=== PATIENT | female | born 1940 | race Caucasian/White ===

== ENCOUNTER 2017-12-29 17:54 | Inpatient (IN) | payer MEDICARE, OTHER ==
[~2017-12-29] VITALS: Ht 170.2 cm; Wt 57.4 kg
[2017-12-29 18:42] LABS: HEMATOCRIT 36.6 % (31.2-41.9); HEMOGLOBIN 12.4 g/dL (10.9-14.3); MEAN CORPUSCULAR HEMOGLOBIN 27.3 uug (24.7-32.8); MEAN CORPUSCULAR HGB CONC 34 g/dL (32.3-35.6); MEAN CORPUSCULAR VOLUME 80.8 fL (75.5-95.3); PLATELET COUNT (AUTO) 322 K/uL (179-408); RED BLOOD CELL COUNT(AUTO) 4.53 MIL/uL (3.63-4.92); WHITE BLOOD COUNT (AUTO) 7.3 K/uL (3.8-11.8)
--- NOTE | 2017-12-29 18:45 | NUR ---
SALINE LOCK PLACED, MRSDA OREDERD /SENT, LABS DRAWN, MONITOR SHOWS SINUS JODI AT 52BPM, GO1=878% ON ROOM AIR.
[2017-12-29 18:52] LABS: BASOPHILS % (AUTO) 0.8 % (0.0-2.0); EOSINOPHILS % (AUTO) 1.9 % (0.0-7.0); LYMPHOCYTES # (AUTO) 2.5 K/uL (20.0-40.0); LYMPHOCYTES % (AUTO) 36.2 % (20.5-51.5); MONOCYTES % (AUTO) 6.6 % (0.0-11.0); NEUTROPHILS # (AUTO) 3.8 K/uL (1.8-8.9); NEUTROPHILS % (AUTO) 54.5 % (38.5-71.5)
[2017-12-29 18:53] LABS: BASOPHILS # (AUTO) 0.1 K/uL (0.0-8.0); EOSINOPHILS # (AUTO) 0.1 K/uL (0.0-0.7); MONOCYTES # (AUTO) 0.5 K/uL (2.0-10.0)
[2017-12-29] MEDS ORDERED: CHOL200078 PO (18:55)
[2017-12-29] MEDS ORDERED: ASCO500T10 PO (18:55)
[2017-12-29] MEDS ORDERED: MEMA10TA PO (18:55)
[2017-12-29] MEDS ORDERED: CLOP75TA15 PO (18:55)
[2017-12-29] MEDS ORDERED: VALS160T2 PO (18:55)
[2017-12-29] MEDS ORDERED: EZET10TA13 PO (18:55)
[2017-12-29] MEDS ORDERED: CARV12.5 PO (18:55)
[2017-12-29] MEDS ORDERED: FAMO-132 PO (18:55)
[2017-12-29] MEDS ORDERED: HYDR-3326 PO (18:55)
[2017-12-29] MEDS ORDERED: ALEN70TA3 PO (18:55)
[2017-12-29] MEDS ORDERED: HYDR12.5 PO (18:55)
[2017-12-29] MEDS ORDERED: MULT1TAB73 PO (18:55)
[2017-12-29] MEDS ORDERED: ACET-2154 PO (18:55)
[2017-12-29] MEDS ORDERED: OMEG-176 PO (18:55)
--- NOTE | 2017-12-29 19:02 | NUR ---
SBAR REPORT TO PM SHIFT RN.
[2017-12-29 19:10] LABS: ALANINE AMINOTRANSFERASE 22 U/L (14-59); ALKALINE PHOSPHATASE 80 U/L (50-136); ASPARTATE AMINOTRANSFERASE 13 U/L (15-37); BILIRUBIN,DIRECT < 0.1 mg/dL (0.0-0.2); BILIRUBIN,TOTAL 0.3 mg/dL (0.2-1.0); CARBON DIOXIDE 29 mmol/L (21-32); CHLORIDE 100 mmol/L (98-107); CREATININE 0.9 mg/dL (0.6-1.3); POTASSIUM 3.6 mmol/L (3.5-5.1); TOTAL PROTEIN, SERUM 6.8 g/dL (6.4-8.2); UREA NITROGEN, BLOOD 30 mg/dL (7-18)
[2017-12-29] MEDS ORDERED: BLOO-140 IN (19:13)
[2017-12-29] MEDS ORDERED: REPA1TAB PO (19:13)
[2017-12-29] MEDS ORDERED: INSU100V7 SQ ×2 (19:13)
[2017-12-29] MEDS ORDERED: ATOR80TA PO (19:13)
[2017-12-29] MEDS ORDERED: MULT-213 PO (19:13)
[2017-12-29 19:17] LABS: GLUCOSE 331 mg/dL (74-106)
--- NOTE | 2017-12-29 19:18 | NUR ---
CALLED FROM LAB. BLOOD GLUCOSE 331. MD RAE NOTIFIED.
[2017-12-29 20:51] LABS: *BILIRUBIN,URIN NEGATIVE (NEGATIVE); *BLOOD, URINE 2+ (NEGATIVE); *CLARITY,URINE TURBID (CLEAR); *COLOR,URINE YELLOW (YELLOW); *KETONES,URINE NEGATIVE (NEGATIVE); *PROTEIN,URINE 2+ (NEGATIVE); *UROBILINOGEN,URINE 0.2 E.U./dl (NORMAL); NITRITE, URINE NEGATIVE (NEGATIVE)
--- NOTE | 2017-12-29 21:15 | NUR ---
REPORT GIVEN TO BEV POTTS
[2017-12-29] MEDS ORDERED: hydrALAZINE HCL 20 MG/1 ML VIAL IV STA (21:19)
[2017-12-29 21:26] LABS: LEUKOCYTE ESTERASE ,URINE 1+ (NEGATIVE); UGLUCOSE 2+ (NEGATIVE)
[2017-12-29] MEDS ORDERED: hydrALAZINE HCL 20 MG/1 ML VIAL ONE ×2 (21:26→22:08)
[2017-12-29] MEDS ORDERED: INSULIN REGULAR, HUMAN 300 UNIT/3 ML VIAL ONE (21:26)
[2017-12-29 21:28] LABS: BACTERIA,URINE MANY /HPF (NONE SEEN); SQUAMOUS EPITHELIAL CELL,UR FEW /HPF (NONE SEEN); WBC,URINE TNTC /HPF (0-3); YEAST,URINE MODERATE /HPF (NONE SEEN)
[2017-12-29] MEDS ORDERED: INSULIN REGULAR, HUMAN 300 UNIT/3 ML VIAL SQ ONE (21:30)
--- NOTE | 2017-12-29 21:36 | NUR ---
INSULIN DOSE VERIFIED BY MAN VILLAFANA
[2017-12-29] MEDS: hydrALAZINE HCL 20 MG/1 ML VIAL IV PRN ×2 (22:05→22:07)
--- NOTE | 2017-12-29 22:25 | NUR ---
ADMITTED A 77Y/O FEMALE WITH DIAGNOSIS OF WEAKNESS. PT ALERT TO SELF ONLY. MAINLY CONFUSED AND DISORIENTED. 2 DAUGHTER PRESENT DURING ADMISSION. ROUTINE ADMISSION CARE DONE. CARE PLAN INITIATED, SAFETY MEASURE INITIATED AND CALL TAYLOR WITHIN REACH.
--- NOTE | 2017-12-29 22:30 | NUR ---
Pt. admitted to [facility]LE[facility], under care of Dr. YEBOAH Belongs List completed
[2017-12-29 22:56] VITALS: BP 129/51
[2017-12-29] MEDS ORDERED: HYDROCODONE/APAP 5-325MG TABLET PO PRN (23:30)
[2017-12-29] MEDS ORDERED: ALENDRONATE SODIUM 70 MG TABLET PO SCH (23:30)
[2017-12-29] MEDS ORDERED: ACETAMINOPHEN 325 MG TABLET PO PRN (23:30)
[2017-12-29] MEDS ORDERED: DEXTROSE 50% 50 ML DISP.SYRIN IV PRN (23:45)
[2017-12-30] MEDS: BLOOD SUGAR DIAGNOSTIC 1 EACH STRIP VI SCH ×5 (00:04→20:40)
[2017-12-30] MEDS: HYDROCHLOROTHIAZIDE 12.5 MG CAPSULE PO SCH ×2 (00:06→11:30)
[2017-12-30] MEDS: INSULIN REGULAR, HUMAN 300 UNITS/3 ML VIAL SQ PRN ×2 (00:06→20:46)
[2017-12-30 00:08] VITALS: BP 117/44
[2017-12-30] MEDS ORDERED: CEFTRIAXONE 1 G VIAL ONE (00:26)
[2017-12-30] MEDS: CEFTRIAXONE 1 G in IV DEXTROSE 5% 50 ML IV SCH (00:44)
[2017-12-30 04:00] VITALS: BP 148/64
--- NOTE | 2017-12-30 06:08 | NUR ---
AAO TO SELF ONLY. CONFUSED AND DISORIENTED. NO S/SX OF PAIN OR SOB. O2 SAT AT 96% ON RA. IN NO ACUTE DISTRESS. SR ON TELE AT 78/MIN. IV SITE ON LEFT AC INTACT AND PATENT. SAFETY MEASURE MAINTAINED AND CALL TAYLOR WITHIN REACH.
--- NOTE | 2017-12-30 07:15 | NUR ---
RECEIVED REPORT FROM FOOD SERVICE KITCHEN SUPERVISOR NURSE, PATIENT IN BED AWAKE, NO DISTRESS NOTED AT THIS TIME, BED IN LOW POSITION, SIDE RAILS UP X2. BED ALARM ON.
[2017-12-30] MEDS: REPAGLINIDE 1 MG TABLET PO SCH ×4 (08:00→17:00)
[2017-12-30] MEDS ORDERED: CARVEDILOL 12.5 MG TABLET PO SCH (09:00)
[2017-12-30] MEDS: FAMOTIDINE 20 MG TABLET PO SCH ×2 (09:00→09:30)
[2017-12-30] MEDS: CLOPIDOGREL 75 MG TABLET PO SCH ×2 (09:00→09:31)
[2017-12-30] MEDS: VALSARTAN 160 MG TABLET PO SCH ×3 (09:00→17:00)
[2017-12-30] MEDS: CHOLECALCIFEROL 1,000 UNIT TABLET PO SCH ×2 (09:00→09:30)
[2017-12-30] MEDS: OMEGA-3 FATTY ACIDS/FISH OIL CAPSULE PO SCH ×3 (09:00→20:34)
[2017-12-30] MEDS: MEMANTINE HCL 10 MG TABLET PO SCH ×3 (09:00→17:00)
[2017-12-30] MEDS: MULTIVITAMINS,THERAPEUTIC TABLET PO SCH ×2 (09:00→09:30)
[2017-12-30] MEDS: ASCORBIC ACID 500 MG TABLET PO SCH ×3 (09:00→17:00)
[2017-12-30 09:26] LABS: BASOPHILS # (AUTO) 0.1 K/uL (0.0-8.0); BASOPHILS % (AUTO) 0.7 % (0.0-2.0); EOSINOPHILS # (AUTO) 0.1 K/uL (0.0-0.7); EOSINOPHILS % (AUTO) 1.6 % (0.0-7.0); HEMATOCRIT 37.4 % (31.2-41.9); HEMOGLOBIN 12.2 g/dL (10.9-14.3); LYMPHOCYTES # (AUTO) 3.1 K/uL (20.0-40.0); LYMPHOCYTES % (AUTO) 38.5 % (20.5-51.5); MEAN CORPUSCULAR HEMOGLOBIN 26.2 uug (24.7-32.8); MEAN CORPUSCULAR HGB CONC 33 g/dL (32.3-35.6); MEAN CORPUSCULAR VOLUME 80.3 fL (75.5-95.3); MONOCYTES # (AUTO) 0.6 K/uL (2.0-10.0); MONOCYTES % (AUTO) 7.6 % (0.0-11.0); NEUTROPHILS # (AUTO) 4.1 K/uL (1.8-8.9); NEUTROPHILS % (AUTO) 51.6 % (38.5-71.5); PLATELET COUNT (AUTO) 307 K/uL (179-408); RED BLOOD CELL COUNT(AUTO) 4.66 MIL/uL (3.63-4.92)
[2017-12-30 09:32] LABS: IRON, SERUM 42 ug/dL (50-175)
[2017-12-30] MEDS: INSULIN GLARGINE,HUM 300 UNITS/3 ML CARTRIDGE SQ SCH ×2 (09:34→20:46)
[2017-12-30] MEDS: INSULIN REGULAR, HUMAN 300 UNIT/3 ML VIAL SQ PRN ×3 (09:34→16:26)
[2017-12-30] MEDS: CARVEDILOL 12.5 MG TABLET PO SCH ×3 (09:35→17:01)
[2017-12-30 09:41] LABS: ALANINE AMINOTRANSFERASE 18 U/L (14-59); ALKALINE PHOSPHATASE 75 U/L (50-136); ASPARTATE AMINOTRANSFERASE 12 U/L (15-37); BILIRUBIN,TOTAL 0.2 mg/dL (0.2-1.0); CARBON DIOXIDE 26 mmol/L (21-32); CHLORIDE 99 mmol/L (98-107); CHOLESTEROL 141 mg/dL (<200); CREATININE 0.8 mg/dL (0.6-1.3); GLUCOSE 242 mg/dL (74-106); HDL CHOLESTEROL 33 mg/dL (40-60); MAGNESIUM 1.7 mg/dL (1.8-2.4); PHOSPHOROUS 3.1 mg/dL (2.5-4.9); POTASSIUM 3.6 mmol/L (3.5-5.1); TOTAL PROTEIN, SERUM 6.7 g/dL (6.4-8.2); TRIGLYCERIDES 186 MG/DL (30-150); UREA NITROGEN, BLOOD 24 mg/dL (7-18)
[2017-12-30 09:47] LABS: THYROID STIMULATING HORMONE 3.045 mIU/mL (0.358-3.740)
[2017-12-30] MEDS ORDERED: CLONIDINE HCL 0.1 MG TABLET PO PRN (11:00)
[2017-12-30] MEDS ORDERED: MAGNESIUM SULFATE/D5W 100 ML IV SCH (11:00)
[2017-12-30 11:34] VITALS: BP 119/48
[2017-12-30 12:07] VITALS: BP 164/64
[2017-12-30] MEDS: ENALAPRILAT DIHYDRATE INJ 1.25 MG in IV NORMAL SALINE 50 ML IV PRN (12:47)
--- NOTE | 2017-12-30 14:45 | NUR ---
Patient has been combative when care being delivered. Patient refused to take oral meds, discussed with Ami AUTOMOTIVE INTERNET SALES MANAGER and IV antihypertensive ordered. Patient took oral meds with family when crushed and in food. Currently patient in bed, no distress noted, bed in low position, side rails up x2.
--- NOTE | 2017-12-30 15:00 | NUR ---
REPORT RECEIVED BY NICOLASA PABLO. REPORTS THAT PT IS NOT COMPLIANT W/ MEDICATION AND IS AOX2, PT CAN BE HYPERVERBAL AND NOT ALLOW CARE. PT HAS NO SIGNS OF HYPO OR HYPER GLYCEMIA AT THIS TIME. CONTINUE TO MONITOR PT.
[2017-12-30 15:12] VITALS: BP 123/47
--- NOTE | 2017-12-30 17:30 | NUR ---
PT REFUSED MEDICATIONS. FAMILY CALLED AND INFORMED. DAUGHTER AT BEDSIDE ENCOURAGED PT TO TAKE MEDICATIONS. PT TO TAKE MEDS WITH CRANBERRY JUICE. PT COMPLIED AND TOOK MEDICATION.
--- NOTE | 2017-12-30 18:27 | NUR ---
PT SHOWS NO SIGNS OF RESPIRATORY DISTRESS AT THIS TIME, NO S/S OF HYPO OR HYPER GLYCEMIA. PT CALM, COOPERATIVE WITH DAUGHTER AT BED SIDE. PT IV SIGHT INTACT, BED AT LOWEST LOCKED POSITION AND WEARING NON SKID SOCKS. BS IS HIGH COVERED WITH INSULIN.CONTINUE TO MONITOR PT.
--- NOTE | 2017-12-30 19:45 | NUR ---
PATIENT AWAKE NO SOB NO CHEST PAIN, NO COMPLAIN OF PAIN AT THIS TIME, PATIENT NON COOPERATIVE WITH MEDICATIONS, REFUSED MEDS, NEEDS LOTS OF ENCOURAGEMENT, KEPT CLEAN AND DRY, KEPT COMFORTABLE.
[2017-12-30 20:00] VITALS: BP 111/55
[2017-12-30] MEDS: ATORVASTATIN 40 MG TABLET PO SCH (20:31)
[2017-12-30] MEDS: EZETIMIBE 10 MG TABLET PO SCH (20:31)
[2017-12-30] MEDS: ENOXAPARIN SODIUM 30 MG/0.3 ML DISP.SYRIN SUBCUT SCH (20:54)
[2017-12-31] VITALS: BP 152/61
[2017-12-31] MEDS: CEFTRIAXONE 1 G in IV DEXTROSE 5% 50 ML IV SCH ×2 (00:08→23:11)
[2017-12-31] MEDS: HYDROCHLOROTHIAZIDE 12.5 MG CAPSULE PO SCH ×3 (00:15→23:10)
[2017-12-31 04:00] VITALS: BP 136/64
[2017-12-31] MEDS: PANTOPRAZOLE SODIUM 40 MG TABLET.DR PO SCH (06:06)
[2017-12-31] MEDS: BLOOD SUGAR DIAGNOSTIC 1 EACH STRIP VI SCH ×4 (06:29→20:26)
--- NOTE | 2017-12-31 07:15 | NUR ---
RECEIVED REPORT FROM CAR CONSTRUCTION SUPERINTENDENT NURSE, PATIENT IN BED ASLEEP, NO DISTRESS NOTED AT THIS TIME, BED IN LOW POSITION SIDE RAILS UP X2, BED ALARM SET. CALL LIGHT WITHIN PATIENT REACH.
[2017-12-31 07:16] LABS: BASOPHILS % (AUTO) 0.5 % (0.0-2.0); EOSINOPHILS # (AUTO) 0.1 K/uL (0.0-0.7); EOSINOPHILS % (AUTO) 1.2 % (0.0-7.0); HEMATOCRIT 39.1 % (31.2-41.9); HEMOGLOBIN 12.8 g/dL (10.9-14.3); LYMPHOCYTES # (AUTO) 3.3 K/uL (20.0-40.0); MEAN CORPUSCULAR HEMOGLOBIN 26.6 uug (24.7-32.8); MEAN CORPUSCULAR HGB CONC 33 g/dL (32.3-35.6); MEAN CORPUSCULAR VOLUME 80.9 fL (75.5-95.3); MONOCYTES # (AUTO) 0.7 K/uL (2.0-10.0); NEUTROPHILS # (AUTO) 4.9 K/uL (1.8-8.9); NEUTROPHILS % (AUTO) 54.3 % (38.5-71.5); PLATELET COUNT (AUTO) 318 K/uL (179-408); RED BLOOD CELL COUNT(AUTO) 4.83 MIL/uL (3.63-4.92)
[2017-12-31 07:36] LABS: ALANINE AMINOTRANSFERASE 23 U/L (14-59); ALKALINE PHOSPHATASE 79 U/L (50-136); ASPARTATE AMINOTRANSFERASE 22 U/L (15-37); BILIRUBIN,TOTAL 0.3 mg/dL (0.2-1.0); CARBON DIOXIDE 29 mmol/L (21-32); CHLORIDE 102 mmol/L (98-107); CREATININE 0.9 mg/dL (0.6-1.3); GLUCOSE 96 mg/dL (74-106); MAGNESIUM 2.1 mg/dL (1.8-2.4); PHOSPHOROUS 4.4 mg/dL (2.5-4.9); POTASSIUM 4.4 mmol/L (3.5-5.1); TOTAL PROTEIN, SERUM 6.9 g/dL (6.4-8.2); UREA NITROGEN, BLOOD 29 mg/dL (7-18)
[2017-12-31] MEDS: OMEGA-3 FATTY ACIDS/FISH OIL CAPSULE PO SCH ×2 (08:31→20:26)
[2017-12-31] MEDS: ASCORBIC ACID 500 MG TABLET PO SCH ×2 (08:31→18:07)
[2017-12-31] MEDS: MULTIVITAMINS,THERAPEUTIC TABLET PO SCH (08:32)
[2017-12-31] MEDS: CHOLECALCIFEROL 1,000 UNIT TABLET PO SCH (08:32)
[2017-12-31] MEDS: REPAGLINIDE 1 MG TABLET PO SCH ×3 (08:32→18:07)
[2017-12-31] MEDS: INSULIN GLARGINE,HUM 300 UNITS/3 ML CARTRIDGE SQ SCH ×2 (08:33→20:29)
[2017-12-31] MEDS: MEMANTINE HCL 10 MG TABLET PO SCH ×2 (08:34→18:07)
[2017-12-31] MEDS: VALSARTAN 160 MG TABLET PO SCH ×2 (08:34→18:07)
[2017-12-31] MEDS: CARVEDILOL 12.5 MG TABLET PO SCH ×2 (08:35→18:07)
[2017-12-31 11:40] VITALS: BP 146/56
[2017-12-31] MEDS: INSULIN REGULAR, HUMAN 300 UNIT/3 ML VIAL SQ PRN ×3 (12:42→20:27)
[2017-12-31 15:35] VITALS: BP 136/58
--- NOTE | 2017-12-31 18:54 | NUR ---
Patient has been cooperative with care, less confusion throughout day, and allowed nursing staff to take care of her in later afternoon. Currently patient in bed awake, no distress noted, bed in low position, side rails up x2. bed alarm on.
[2017-12-31 20:00] VITALS: BP 133/51
[2017-12-31] MEDS: EZETIMIBE 10 MG TABLET PO SCH (20:26)
[2017-12-31] MEDS: ATORVASTATIN 40 MG TABLET PO SCH (20:26)
[2017-12-31] MEDS: ENOXAPARIN SODIUM 30 MG/0.3 ML DISP.SYRIN SUBCUT SCH (20:28)
[2018-01-01 04:00] VITALS: BP 124/60
[2018-01-01] MEDS: PANTOPRAZOLE SODIUM 40 MG TABLET.DR PO SCH (06:03)
[2018-01-01] MEDS: BLOOD SUGAR DIAGNOSTIC 1 EACH STRIP VI SCH ×3 (06:34→15:41)
--- NOTE | 2018-01-01 07:20 | NUR ---
RECEIVED REPORT FROM BEAD WRAPPER NURSE, PATIENT IN BED AWAKE, NO DISTRESS NOTED, BED IN LOW POSITION, SIDE RAILS UP X2, BED ALARM ON. PATIENT REPORTS NO PAIN.
[2018-01-01] MEDS: CARVEDILOL 12.5 MG TABLET PO SCH ×3 (08:00→08:59)
[2018-01-01] MEDS: REPAGLINIDE 1 MG TABLET PO SCH ×3 (08:00→12:00)
[2018-01-01] MEDS: ASCORBIC ACID 500 MG TABLET PO SCH ×3 (08:26→17:09)
[2018-01-01] MEDS: CHOLECALCIFEROL 1,000 UNIT TABLET PO SCH (08:26)
[2018-01-01] MEDS: MULTIVITAMINS,THERAPEUTIC TABLET PO SCH (08:26)
[2018-01-01] MEDS: OMEGA-3 FATTY ACIDS/FISH OIL CAPSULE PO SCH ×2 (08:26→09:00)
[2018-01-01] MEDS: VALSARTAN 160 MG TABLET PO SCH ×4 (08:26→17:10)
[2018-01-01] MEDS: MEMANTINE HCL 10 MG TABLET PO SCH ×3 (08:35→17:10)
--- NOTE | 2018-01-01 09:20 | NUR ---
PATIENT HOLDING MEDICATIONS IN MOUTH, AND SPITTING UP SLOWLY, REFUSING TO SWALLOW MEDICATIONS. BP STILL HIGH WILL GIVE VASOTEC.
[2018-01-01] MEDS: INSULIN GLARGINE,HUM 300 UNITS/3 ML CARTRIDGE SQ SCH (10:22)
[2018-01-01] MEDS: ENALAPRILAT DIHYDRATE INJ 1.25 MG in IV NORMAL SALINE 50 ML IV PRN (10:40)
[2018-01-01] MEDS: HYDROCHLOROTHIAZIDE 12.5 MG CAPSULE PO SCH (11:30)
[2018-01-01 12:02] LABS: BASOPHILS # (AUTO) 0.1 K/uL (0.0-8.0); BASOPHILS % (AUTO) 0.5 % (0.0-2.0); EOSINOPHILS % (AUTO) 0.2 % (0.0-7.0); HEMOGLOBIN 12.8 g/dL (10.9-14.3); LYMPHOCYTES # (AUTO) 1.5 K/uL (20.0-40.0); LYMPHOCYTES % (AUTO) 12.7 % (20.5-51.5); MEAN CORPUSCULAR HEMOGLOBIN 26.6 uug (24.7-32.8); MEAN CORPUSCULAR HGB CONC 33 g/dL (32.3-35.6); MONOCYTES # (AUTO) 0.7 K/uL (2.0-10.0); MONOCYTES % (AUTO) 6.1 % (0.0-11.0); NEUTROPHILS # (AUTO) 9.7 K/uL (1.8-8.9); NEUTROPHILS % (AUTO) 80.5 % (38.5-71.5); PLATELET COUNT (AUTO) 296 K/uL (179-408); RED BLOOD CELL COUNT(AUTO) 4.82 MIL/uL (3.63-4.92)
[2018-01-01 12:10] LABS: ALANINE AMINOTRANSFERASE 18 U/L (14-59); ALKALINE PHOSPHATASE 74 U/L (50-136); ASPARTATE AMINOTRANSFERASE 12 U/L (15-37); BILIRUBIN,TOTAL 0.2 mg/dL (0.2-1.0); CARBON DIOXIDE 25 mmol/L (21-32); CHLORIDE 100 mmol/L (98-107); CREATININE 1.1 mg/dL (0.6-1.3); MAGNESIUM 1.9 mg/dL (1.8-2.4); PHOSPHOROUS 3.8 mg/dL (2.5-4.9); POTASSIUM 4.1 mmol/L (3.5-5.1); TOTAL PROTEIN, SERUM 6.6 g/dL (6.4-8.2); UREA NITROGEN, BLOOD 29 mg/dL (7-18)
[2018-01-01 12:20] LABS: GLUCOSE 353 mg/dL (74-106)
[2018-01-01] MEDS: INSULIN REGULAR, HUMAN 300 UNIT/3 ML VIAL SQ PRN (13:12)
[2018-01-01 13:41] VITALS: BP 134/68
[2018-01-01] MEDS ORDERED: PANT40TA2 PO (13:47)
[2018-01-01] MEDS ORDERED: CLON0.1T14 PO (13:47)
[2018-01-01] MEDS ORDERED: CEPH500C2 PO (13:47)
[2018-01-01] MEDS ORDERED: FLUC100T8 PO ×2 (13:47→13:53)
[2018-01-01] MEDS ORDERED: Insulin Glargine,Hum SQ (13:47)
[2018-01-01] MEDS ORDERED: Blood Sugar Diagnostic VI (13:47)
[2018-01-01] MEDS ORDERED: INSU100V28 SQ ×2 (13:47)
[2018-01-01] MEDS ORDERED: LACT1CAP59 PO (13:51)
[2018-01-01] MEDS ORDERED: CEPHALEXIN MONOHYDRATE 500 MG CAPSULE PO SCH (14:00)
[2018-01-01] MEDS ORDERED: FLUCONAZOLE 200 MG/NS 100ML IV 100 MG in PREMIXED 1 EACH IV SCH (15:00)
[2018-01-01 15:58] VITALS: BP 111/57
[2018-01-01 17:10] VITALS: BP 111/57
--- NOTE | 2018-01-01 17:56 | NUR ---
REPORT CALLED TO [facility] [place], IV REMOVED AND FAMILY NOTIFIED BY KYLE FERRIS. PATIENT IN NO DISTRESS AT TIME OF DISCHARGE.
[2018-01-02] MEDS ORDERED: ALENDRONATE SODIUM 70 MG TABLET PO SCH (06:00)
[2018-01-02] MEDS ORDERED: INSULIN GLARGINE,HUM 300 UNITS/3 ML CARTRIDGE SQ SCH (09:00)
== END 2018-01-01 18:15 | DRG 757 ==
LOC: ER 17:56 → TELE 20:54 → MED 12-31 17:32
PROVIDERS: ADMIT Internal Medicine; ATTEND Internal Medicine
DX: B37.49 Other urogenital candidiasis (principal); G92 Toxic encephalopathy; E44.0 Moderate protein-calorie malnutrition; D68.59 Other primary thrombophilia; E11.65 Type 2 diabetes mellitus with hyperglycemia; E83.42 Hypomagnesemia; Z68.1 Body mass index [BMI] 19.9 or less, adult; N39.0 Urinary tract infection, site not specified; I25.10 Atherosclerotic heart disease of native coronary artery without angina pectoris; R26.2 Difficulty in walking, not elsewhere classified; B96.20 Unspecified Escherichia coli [E. coli] as the cause of diseases classified elsewhere; Z16.11 Resistance to penicillins; Z86.73 Personal history of transient ischemic attack (TIA), and cerebral infarction without residual deficits; Z90.710 Acquired absence of both cervix and uterus; Z92.21 Personal history of antineoplastic chemotherapy; Z85.43 Personal history of malignant neoplasm of ovary; E78.1 Pure hyperglyceridemia; Z79.4 Long term (current) use of insulin; F41.9 Anxiety disorder, unspecified; F03.90 Unspecified dementia, unspecified severity, without behavioral disturbance, psychotic disturbance, mood disturbance, and anxiety; Z79.02 Long term (current) use of antithrombotics/antiplatelets; Z79.899 Other long term (current) drug therapy; M81.0 Age-related osteoporosis without current pathological fracture; Z87.11 Personal history of peptic ulcer disease; Z79.83 Long term (current) use of bisphosphonates; Z98.49 Cataract extraction status, unspecified eye; E78.5 Hyperlipidemia, unspecified; Z74.09 Other reduced mobility; I11.9 Hypertensive heart disease without heart failure
CPT/HCPCS: 36415; 70030-TC; 70450; 71045; 83550; 83605; 83735; 84100; 84443; 85025; 85730; 87040; 87077; 87086; 92526; 93005; 93307; 97110; 97530; A4663; J0360; J0696; J1450; J1650; J1815; J3475; J3490; J7050; J7060

== ENCOUNTER 2018-05-12 21:15 | Inpatient (IN) | payer MEDICARE, OTHER ==
[~2018-05-12] VITALS: Ht 165.1 cm; Wt 59.0 kg
[~2018-05-12 21:15] MED LIST: ACET-2154 PO; ALEN70TA3 PO; ASCO500T10 PO; ATOR80TA PO; Blood Sugar Diagnostic VI; CARV12.5 PO; CEPH500C2 PO; CHOL200078 PO; CLON0.1T14 PO; CLOP75TA15 PO; EZET10TA13 PO; FAMO-132 PO; FLUC100T8 PO; HYDR-3326 PO; HYDR12.5 PO; INSU100V28 SQ; INSU100V7 SQ; Insulin Glargine,Hum SQ; LACT1CAP59 PO; MEMA10TA PO; MULT-213 PO; OMEG-176 PO; REPA1TAB PO; VALS160T2 PO
--- NOTE | 2018-05-13 00:28 | NUR ---
Dr. Deleon at bedside for MSE.
[2018-05-13] MEDS ORDERED: PIPERACILLIN SODIUM/TAZOBACTAM 3.375 G in IV DEXTROSE 5% 50 ML IV ONE (00:45)
[2018-05-13 00:49] LABS: BASOPHILS % (AUTO) 0.7 % (0.0-2.0); EOSINOPHILS # (AUTO) 0.1 K/uL (0.0-0.7); HEMATOCRIT 32.2 % (31.2-41.9); HEMOGLOBIN 10.6 g/dL (10.9-14.3); LYMPHOCYTES # (AUTO) 3.3 K/uL (20.0-40.0); LYMPHOCYTES % (AUTO) 47.3 % (20.5-51.5); MEAN CORPUSCULAR HEMOGLOBIN 26.4 uug (24.7-32.8); MEAN CORPUSCULAR HGB CONC 33 g/dL (32.3-35.6); MEAN CORPUSCULAR VOLUME 80.1 fL (75.5-95.3); MONOCYTES # (AUTO) 0.7 K/uL (2.0-10.0); MONOCYTES % (AUTO) 10.5 % (0.0-11.0); NEUTROPHILS # (AUTO) 2.7 K/uL (1.8-8.9); NEUTROPHILS % (AUTO) 39.5 % (38.5-71.5); PLATELET COUNT (AUTO) 445 K/uL (179-408); RED BLOOD CELL COUNT(AUTO) 4.03 MIL/uL (3.63-4.92); WHITE BLOOD COUNT (AUTO) 6.9 K/uL (3.8-11.8)
[2018-05-13] MEDS ORDERED: PIPERACILLIN/TAZOBACTAM/D5W 50 ML IV ONE (00:51)
[2018-05-13 01:01] LABS: CARBON DIOXIDE 28 mmol/L (21-32); CHLORIDE 99 mmol/L (98-107); CREATININE 0.9 mg/dL (0.6-1.3); GLUCOSE 146 mg/dL (74-106); POTASSIUM 3.9 mmol/L (3.5-5.1); UREA NITROGEN, BLOOD 32 mg/dL (7-18)
[2018-05-13] MEDS ORDERED: INSU100C4 SQ (01:06)
[2018-05-13] MEDS ORDERED: CLON0.1T PO (01:06)
[2018-05-13] MEDS ORDERED: FLUC100T PO (01:06)
[2018-05-13] MEDS ORDERED: BLOO-140 IN (01:06)
[2018-05-13] MEDS ORDERED: LOSA50TA3 PO (01:06)
[2018-05-13] MEDS ORDERED: INSU100V7 SQ ×2 (01:06)
[2018-05-13 01:07] LABS: ALANINE AMINOTRANSFERASE 43 U/L (14-59); ALKALINE PHOSPHATASE 112 U/L (50-136); ASPARTATE AMINOTRANSFERASE 28 U/L (15-37); BILIRUBIN,DIRECT 0.1 mg/dL (0.0-0.2); BILIRUBIN,TOTAL 0.2 mg/dL (0.2-1.0); TOTAL PROTEIN, SERUM 6.9 g/dL (6.4-8.2)
--- NOTE | 2018-05-13 01:38 | NUR ---
Dr. Deleon on panel call with [facility] Dr[facility] Humphrey.
[2018-05-13] MEDS ORDERED: HYDROCODONE/APAP 5-325MG TABLET PO PRN (03:00)
[2018-05-13] MEDS ORDERED: ACETAMINOPHEN 325 MG TABLET PO PRN (03:00)
[2018-05-13] MEDS ORDERED: MAGNESIUM HYDROXIDE 30 ML LIQUID UDC PO PRN (03:00)
[2018-05-13] MEDS ORDERED: ONDANSETRON 4 MG/2 ML VIAL IV PRN (03:00)
[2018-05-13] MEDS ORDERED: CLONIDINE HCL 0.1 MG TABLET PO PRN (03:00)
[2018-05-13] MEDS ORDERED: Z GUARD REMEDY PASTE 57 GM TUBE TOP PRN (03:00)
[2018-05-13] MEDS ORDERED: DEXTROSE 50% 50 ML DISP.SYRIN IV PRN (03:00)
[2018-05-13] MEDS ORDERED: LOSARTAN POTASSIUM 50 MG TABLET PO SCH (03:30)
--- NOTE | 2018-05-13 03:30 | NUR ---
Report given to Ramone Lawcarolyn.
[2018-05-13 03:48] VITALS: BP 165/75
--- NOTE | 2018-05-13 03:48 | NUR ---
PT ARRIVED IN MEDSURG UNIT ALERT TO TOUCH AND LIGHT PAIN, AWAKE, BUT NONVERBAL. UNABLE TO MAKE NEEDS KNOWN WITH FLAT AFFECT. PT NEEDS MAXIMUM ASSISTANCE WITH CARE AND ADLS. BP NOTED 165/75 TO LEFT ARM AND 189/84 TO RIGHT ARM. PT WAS OFFERED ROUTINE MICROZIDE AND COZAAR, AND ALSO PRN CATAPRES BUT REFUSED TO OPEN HER MOUTH FOR UNKNOWN REASONS INCLUDING PUDDING. BONIFACIO WILLIAMSON DNP IS AWARE AND STATED HE WILL FOLLOW UP. NO NEW ORDERS AT THIS TIME. NO S/S OF HYPER/HYPOGLYCEMIA. WILL CONTINUE TO MONITOR. PT REPOSITIONED WITH HOB 30 DEGREES AND BED ALARM ON.
[2018-05-13] MEDS ORDERED: LOSARTAN POTASSIUM 50 MG TABLET PO ONE (04:15)
--- NOTE | 2018-05-13 05:52 | NUR ---
PT REMAINS ASYMPTOMATIC SINCE BP READING. NO PAIN, HEADACHES, OR SOB SINCE ARRIVING TO [facility]. ISOLATION CART IN PLACE FOR ESBL OF URINE. NO NEW ORDERS AT THIS TIME. WILL CONTINUE TO MONITOR.
[2018-05-13] MEDS: PANTOPRAZOLE SODIUM 40 MG TABLET.DR PO SCH (06:27)
[2018-05-13] MEDS: BLOOD SUGAR DIAGNOSTIC 1 EACH STRIP VI SCH ×4 (06:31→21:51)
[2018-05-13 07:33] VITALS: BP 185/71
--- NOTE | 2018-05-13 07:46 | NUR ---
patient resting comfortably in bed at this time. elevated bp - will notify receptionist scheduler MD. refusing BP meds per production supervisor off shift nurse. blood sugar 81 in the morning. will monitor BS closely throughout shift. no signs of distress at this time. bed alarm is on, call light within reach of patient. bed in locked/low position. side rails up x2.
[2018-05-13] MEDS: CHOLECALCIFEROL 1,000 UNIT TABLET PO SCH (08:14)
[2018-05-13] MEDS: MEMANTINE HCL 10 MG TABLET PO SCH ×2 (08:14→18:02)
[2018-05-13] MEDS: OMEGA-3 FATTY ACIDS/FISH OIL CAPSULE PO SCH ×2 (08:14→21:26)
[2018-05-13] MEDS: MULTIVIT, IRON, MIN NO. 8, FA TABLET PO SCH (08:14)
[2018-05-13] MEDS: CLOPIDOGREL 75 MG TABLET PO SCH (08:15)
[2018-05-13] MEDS: ASCORBIC ACID 500 MG TABLET PO SCH ×2 (08:15→18:02)
[2018-05-13] MEDS: LOSARTAN POTASSIUM 50 MG TABLET PO SCH ×2 (08:15→21:26)
[2018-05-13] MEDS: HYDROCHLOROTHIAZIDE 12.5 MG CAPSULE PO SCH ×2 (08:15→21:27)
[2018-05-13] MEDS: CARVEDILOL 12.5 MG TABLET PO SCH ×2 (08:16→17:53)
[2018-05-13] MEDS: REPAGLINIDE 1 MG TABLET PO SCH ×3 (08:18→18:02)
[2018-05-13] MEDS: INSULIN GLARGINE,HUM 300 UNITS/3 ML CARTRIDGE SQ SCH ×2 (09:00→21:55)
[2018-05-13] MEDS ORDERED: Medication Not On Formulary EA (Multivitamins W-Minerals (Daily Multivitamin-Minerals) 1 PO SCH (09:00)
[2018-05-13] MEDS ORDERED: IV D5W-0.45% NS 1000 ML BAG IV ONE (10:15)
[2018-05-13 11:09] VITALS: BP 98/46
[2018-05-13] MEDS: IV D5 1/2 NS 1000 ML 1,000 ML IV PRN (12:10)
[2018-05-13] MEDS: INSULIN REGULAR, HUMAN 300 UNIT/3 ML VIAL SQ PRN ×2 (12:32→21:56)
[2018-05-13 15:10] VITALS: BP 109/50
[2018-05-13] MEDS: MEROPENEM 1 G in IV NORMAL SALINE 100 ML IV SCH ×2 (15:45→21:27)
--- NOTE | 2018-05-13 19:25 | NUR ---
RECEIVED PT ASLEEP ON BED COMFORTABLY. PT SHOWS NO SIGNS OF DISTRESS. IV INTACT AND PATENT. BLOOD SUGAR LEVEL MANAGED. CALL LIGHT WITHIN REACH. BED ALARM ON AND IN LOW POSITION, SIDE RAILS UPX2.WILL CONTINUE TO MONITOR.
--- NOTE | 2018-05-13 19:37 | NUR ---
IVF RUNNING, ABX ADMINISTERED. PATIENT CONTINUES TO BE CONFUSED, NON-VERBAL. SLIGHTLY DIFFICULT TO AROUSE WHEN ASLEEP. VITAL SIGNS HAVE BEEN STABLE. BLOOD PRESSURE WNL. BLOOD SUGAR MANAGEMENT PROVIDED. BED REST. BED ALARM ON. SAFETY MEASURES IMPLEMENTED. AFEBRILE. CONTACT ISOLATION FOR ESBL URINE. NO SIGNS OF DISTRESS. BED IN LOCKED/LOW POSITION, CALL LIGHT WITHIN REACH, SIDE RAILS UP X2.
[2018-05-13 20:00] VITALS: BP 113/53
[2018-05-13] MEDS ORDERED: Medication Not On Formulary EA (Atorvastatin Calcium (Lipitor) 80 MG) PO SCH (21:00)
[2018-05-13] MEDS: EZETIMIBE 10 MG TABLET PO SCH (21:27)
[2018-05-13] MEDS: ATORVASTATIN 40 MG TABLET PO SCH (21:31)
[2018-05-14] MEDS: IV D5 1/2 NS 1000 ML 1,000 ML IV PRN ×2 (02:11→18:23)
[2018-05-14 04:44] VITALS: BP 141/57
[2018-05-14] MEDS: MEROPENEM 1 G in IV NORMAL SALINE 100 ML IV SCH ×3 (05:05→21:59)
[2018-05-14] MEDS ORDERED: PIPERACILLIN/TAZOBACTAM/D5W 50 ML IV SCH (06:00)
--- NOTE | 2018-05-14 06:08 | NUR ---
PT SLEPT THROUGHOUT THE SHIFT. PT SHOWS NO SIGNS OF DISTRESS. PT IV INTACT AND PATENT. PRESCRIBED MEDICATION GIVEN AND PT TOLERATED IT WELL. PT DOESN'T WANT FIRST TO TAKE THE MEDICATION . IT WILL TAKE A WHILE FOR HER TO TAKE THE MEDICATION.SAFETY AND COMFORT PROVIDED. ALL NEEDS ARE MET. WILL ENDORSE ACCORDINGLY TO INCOMING DAYSHIFT NURSE.
[2018-05-14] MEDS: PANTOPRAZOLE SODIUM 40 MG TABLET.DR PO SCH (06:21)
[2018-05-14] MEDS: BLOOD SUGAR DIAGNOSTIC 1 EACH STRIP VI SCH ×4 (06:34→20:06)
[2018-05-14 06:48] LABS: BASOPHILS % (AUTO) 0.6 % (0.0-2.0); EOSINOPHILS # (AUTO) 0.1 K/uL (0.0-0.7); EOSINOPHILS % (AUTO) 2.1 % (0.0-7.0); HEMATOCRIT 31.6 % (31.2-41.9); HEMOGLOBIN 10.4 g/dL (10.9-14.3); LYMPHOCYTES # (AUTO) 2.4 K/uL (20.0-40.0); LYMPHOCYTES % (AUTO) 38.4 % (20.5-51.5); MEAN CORPUSCULAR HEMOGLOBIN 26.2 uug (24.7-32.8); MEAN CORPUSCULAR HGB CONC 33 g/dL (32.3-35.6); MEAN CORPUSCULAR VOLUME 79.3 fL (75.5-95.3); MONOCYTES # (AUTO) 0.5 K/uL (2.0-10.0); MONOCYTES % (AUTO) 8.6 % (0.0-11.0); NEUTROPHILS # (AUTO) 3.1 K/uL (1.8-8.9); NEUTROPHILS % (AUTO) 50.3 % (38.5-71.5); PLATELET COUNT (AUTO) 428 K/uL (179-408); RED BLOOD CELL COUNT(AUTO) 3.98 MIL/uL (3.63-4.92); WHITE BLOOD COUNT (AUTO) 6.2 K/uL (3.8-11.8)
[2018-05-14 06:54] LABS: CARBON DIOXIDE 28 mmol/L (21-32); CHLORIDE 103 mmol/L (98-107); CHOLESTEROL 200 mg/dL (<200); GLUCOSE 184 mg/dL (74-106); HDL CHOLESTEROL 35 mg/dL (40-60); MAGNESIUM 1.9 mg/dL (1.8-2.4); PHOSPHOROUS 2.7 mg/dL (2.5-4.9); POTASSIUM 3.7 mmol/L (3.5-5.1); TRIGLYCERIDES 193 MG/DL (30-150); UREA NITROGEN, BLOOD 22 mg/dL (7-18)
[2018-05-14 07:01] LABS: THYROID STIMULATING HORMONE 3.258 mIU/mL (0.358-3.740)
--- NOTE | 2018-05-14 07:49 | NUR ---
Received pt sleeping, no immediate s/sx of sob, pain, distress, or discomfort.
[2018-05-14] MEDS: REPAGLINIDE 1 MG TABLET PO SCH ×3 (08:00→17:46)
[2018-05-14] MEDS: CARVEDILOL 12.5 MG TABLET PO SCH ×3 (08:00→17:46)
[2018-05-14] MEDS: INSULIN REGULAR, HUMAN 300 UNIT/3 ML VIAL SQ PRN ×4 (08:31→20:08)
[2018-05-14] MEDS: INSULIN GLARGINE,HUM 300 UNITS/3 ML CARTRIDGE SQ SCH ×2 (08:35→20:07)
[2018-05-14] MEDS: LOSARTAN POTASSIUM 50 MG TABLET PO SCH ×2 (08:57→20:09)
[2018-05-14] MEDS: MULTIVIT, IRON, MIN NO. 8, FA TABLET PO SCH (08:58)
[2018-05-14] MEDS: MEMANTINE HCL 10 MG TABLET PO SCH ×2 (08:58→17:46)
[2018-05-14] MEDS: OMEGA-3 FATTY ACIDS/FISH OIL CAPSULE PO SCH ×2 (08:58→20:09)
[2018-05-14] MEDS: HYDROCHLOROTHIAZIDE 12.5 MG CAPSULE PO SCH ×3 (08:58→20:10)
[2018-05-14] MEDS: CLOPIDOGREL 75 MG TABLET PO SCH ×2 (08:58→12:19)
[2018-05-14] MEDS: CHOLECALCIFEROL 1,000 UNIT TABLET PO SCH (09:00)
[2018-05-14] MEDS: ASCORBIC ACID 500 MG TABLET PO SCH ×2 (09:00→17:46)
--- NOTE | 2018-05-14 09:02 | NUR ---
Offered and explained morning medication to the pt. Meds were crushed and offered with food. Pt refused by turning her head away and spitting out the medications and started to scream. Offered three times, pt kept refusing. Meds were discarded in the trash. Insulin and Lantus given.
--- NOTE | 2018-05-14 10:30 | NUR ---
Seen and evaluated by Dr. Nieves Addendum: 05/14/18 at 1239 by DICKSON NEFF RN aware pt refused her breakfast and morning medications. asked to inform daughter to bring outside food and encourage pt to eat
[2018-05-14 11:12] VITALS: BP 167/60
--- NOTE | 2018-05-14 11:42 | NUR ---
Seen and evaluated by wound nurse. Aida assessed the pt.'s left heel redness and stated it was a DTI and noted a new sacral wound: orders to apply Mepilex on the left heel and offload and orders to apply a small amount of hydrogel on sacral wound stage 2 and cover with Mepilex. Sacral wound is considered hospital acquired per Aida
--- NOTE | 2018-05-14 11:59 | NUR ---
WOUND CARE CONSULT: PT PRESENTS WITH LEFT HEEL DEEP TISSUE INJURY (INTACT) PRESENT ON ADMISSION. PT ALSO NOTED TO HAVE SACRAL STAGE 2 ULCER. RECOMMENDATIONS MADE FOR SKIN PROTECTION AND WOUND CARE. DISCUSSED WITH NURSING STAFF. FIRST STEP MATTRESS (LOW AIRLOSS OVERLAY) ON ORDER. ALL SKIN PROTECTION MEASURES IN PLACE. WILL SEE PRN. IN AGREEMENT WITH PLAN OF CARE. CURRENT AMANDA SCORE IS 11.
--- NOTE | 2018-05-14 12:33 | NUR ---
Daughter by bedside, offered to assist in giving the pt her much need morning medications: Prandin, hydrochlorothiazide, clopidogrel, carvedilol, and losartan potassium. Pt took meds finely crushed in cranberry juice offered and given by the daughter with supervision Addendum: 05/14/18 at 1240 by DICKSON NEFF RN pt i s noted to eat her lunch. Pt is being feed by her daughter and is complaint Addendum: 05/14/18 at 1409 by DICKSON NEFF RN *COMPLIANT
--- NOTE | 2018-05-14 14:07 | NUR ---
REORDERED FIRST STEP SPECIALTY MATTRESS
[2018-05-14 15:34] VITALS: BP 109/40
--- NOTE | 2018-05-14 17:30 | NUR ---
Sacral picture taken. Meds given crushed with cranberry juice. Pt eat about half a tuna sandwich
--- NOTE | 2018-05-14 18:24 | NUR ---
MD aware pt is on D5-1/2 NS, possible reason pt Accu checks are high
[2018-05-14 19:15] VITALS: BP 115/50
--- NOTE | 2018-05-14 20:00 | NUR ---
RECEIVED PATIENT AWAKE IN BED. ALERT TO SELF ONLY. CONFUSED. NO S/S OF PAIN OR DISCOMFORT. NO FACIAL GRIMACE NOTED. NO RESP. DISTRESS NOTED. VS WNL. HEPLOCK INTACT AND PATENT, NOTED TO RIGHT WRIST #20 GAUGE WITH IVF INFUSING WELL. ON RA. ON CONTACT ISOLATION FOR ESBL IN THE URINE. BILATERAL HEELS OFF-LOADED FOR PRESSURE RELIEF. BED ALARM ON. CALL LIGHT IN REACH. ALL NEEDS ATTENDED. WILL CONTINUE TO MONITOR AND ASSESS.
[2018-05-14] MEDS: EZETIMIBE 10 MG TABLET PO SCH (20:09)
[2018-05-14] MEDS: ATORVASTATIN 40 MG TABLET PO SCH (20:09)
--- NOTE | 2018-05-14 22:00 | NUR ---
PATIENT REPOSITIONED TO SIDE FOR PRESSURE RELIEF. BILATERAL HEELS OFF-LOADED. BED ALARM ON. ALL NEEDS ATTENDED. WILL CONTINUE TO MONITOR AND ASSESS.
[2018-05-15 03:40] VITALS: BP 141/58
[2018-05-15] MEDS: MEROPENEM 1 G in IV NORMAL SALINE 100 ML IV SCH ×3 (05:28→21:47)
[2018-05-15] MEDS: ALENDRONATE SODIUM 70 MG TABLET PO SCH ×2 (05:36→05:45)
--- NOTE | 2018-05-15 06:17 | NUR ---
PATIENT AWAKE IN BED. AIR MATTRESS IN PLACE. DRESSING NOTED TO SACRUM, CHANGED. C/D/I. SLEPT WELL. IVF INFUSING WELL TO RIGHT WRIST. VS WNL. REPOSITIONED TO SIDE AND BILATERAL HEELS OFF-LOADED FOR PRESSURE RELIEF. BED ALARM ON. CALL LIGHT IN REACH. ALL NEEDS ATTENDED. WILL CONTINUE TO MONITOR AND ASSESS.
[2018-05-15] MEDS: PANTOPRAZOLE SODIUM 40 MG TABLET.DR PO SCH (06:23)
[2018-05-15] MEDS: BLOOD SUGAR DIAGNOSTIC 1 EACH STRIP VI SCH ×4 (06:42→20:29)
[2018-05-15] MEDS: CLOPIDOGREL 75 MG TABLET PO SCH (08:54)
[2018-05-15] MEDS: LOSARTAN POTASSIUM 50 MG TABLET PO SCH ×2 (08:54→20:29)
[2018-05-15] MEDS: MEMANTINE HCL 10 MG TABLET PO SCH ×2 (08:54→16:57)
[2018-05-15] MEDS: HYDROCHLOROTHIAZIDE 12.5 MG CAPSULE PO SCH ×2 (08:54→20:29)
[2018-05-15] MEDS: REPAGLINIDE 1 MG TABLET PO SCH ×3 (08:55→16:57)
[2018-05-15] MEDS: CARVEDILOL 12.5 MG TABLET PO SCH ×2 (08:55→17:01)
[2018-05-15] MEDS: OMEGA-3 FATTY ACIDS/FISH OIL CAPSULE PO SCH ×2 (08:55→20:29)
[2018-05-15] MEDS: ASCORBIC ACID 500 MG TABLET PO SCH ×2 (08:55→16:57)
[2018-05-15] MEDS: CHOLECALCIFEROL 1,000 UNIT TABLET PO SCH (08:55)
[2018-05-15] MEDS: MULTIVIT, IRON, MIN NO. 8, FA TABLET PO SCH (08:55)
[2018-05-15] MEDS: INSULIN GLARGINE,HUM 300 UNITS/3 ML CARTRIDGE SQ SCH ×2 (08:56→20:30)
[2018-05-15] MEDS: IV D5 1/2 NS 1000 ML 1,000 ML IV PRN (08:57)
[2018-05-15 11:16] VITALS: BP 140/54
[2018-05-15 15:24] VITALS: BP 136/53
[2018-05-15] MEDS: INSULIN REGULAR, HUMAN 300 UNIT/3 ML VIAL SQ PRN ×2 (17:00→20:31)
--- NOTE | 2018-05-15 17:48 | NUR ---
PATIENT WAS TURNED AND REPOSITIONED Q2HR, SACRUM DRESSING CHANGED C/D/I. ATE MOST OF LUNCH DUE TO FAMILY BEING AT BEDSIDE, ENCOURAGED FAMILY TO COME BACK AND DAUGHTER IN LAW STATED SHE WOULD TRY AND MAKE IT BACK FOR DINNER. ABX GIVEN ORDERED, IV INFUSING, IV INTACT AND PATENT
[2018-05-15 18:44] VITALS: BP 118/45
[2018-05-15 19:00] VITALS: BP 129/50
--- NOTE | 2018-05-15 19:50 | NUR ---
RECEIVED PATIENT ASLEEP IN BED. EASILY AROUSABLE. ALERT TO SELF ONLY. CONFUSED. NO S/S OF PAIN OR DISCOMFORT. NO FACIAL GRIMACE NOTED. NO RESP. DISTRESS NOTED. VS WNL. HEPLOCK INTACT AND PATENT, NOTED TO RIGHT WRIST #20 GAUGE WITH IVF INFUSING WELL. ON RA. ON CONTACT ISOLATION FOR ESBL IN THE URINE. BILATERAL HEELS OFF-LOADED FOR PRESSURE RELIEF. BED ALARM ON. CALL LIGHT IN REACH. ALL NEEDS ATTENDED. WILL CONTINUE TO MONITOR AND ASSESS.
[2018-05-15] MEDS: ATORVASTATIN 40 MG TABLET PO SCH (20:29)
[2018-05-15] MEDS: EZETIMIBE 10 MG TABLET PO SCH (20:29)
--- NOTE | 2018-05-15 20:30 | NUR ---
PATIENT REPOSITIONED TO SIDE FOR PRESSURE RELIEF. ON AIR MATTRESS. BILATERAL HEELS OFF-LOADED. BED ALARM ON. CALL LIGHT IN REACH. ALL NEEDS ATTENDED. WILL CONTINUE TO MONITOR.
[2018-05-16] MEDS: IV D5 1/2 NS 1000 ML 1,000 ML IV PRN (00:16)
[2018-05-16 04:00] VITALS: BP 150/66
[2018-05-16] MEDS: MEROPENEM 1 G in IV NORMAL SALINE 100 ML IV SCH ×2 (05:22→15:09)
[2018-05-16] MEDS: PANTOPRAZOLE SODIUM 40 MG TABLET.DR PO SCH (06:03)
--- NOTE | 2018-05-16 06:16 | NUR ---
PATIENT REPOSITIONED TO SIDE. SLEPT WELL. IVF INFUSING. DRESSING CHANGED TO SACRUM. BILATERAL HEELS OFF-LOADED FOR PRESSURE RELIEF. BED ALARM ON. CALL LIGHT IN REACH. ALL NEEDS ATTENDED. WILL CONTINUE TO MONITOR AND ASSESS.
[2018-05-16] MEDS: BLOOD SUGAR DIAGNOSTIC 1 EACH STRIP VI SCH ×2 (06:40→12:13)
--- NOTE | 2018-05-16 07:00 | NUR ---
RECEIVED REPORT FROM TEST SKEIN WINDER. PATIENT NOT IN ACUTE DISTRESS. ASLEEP. AAOX1. IV ACCESS ON RIGHT WRIST # 20 RUNNING IVF INFUSING WELL. ON 1ST STEP MATTRESS. COMFORT MEASURES PROVIDED WILL CONTINUE TO MONITOR CLOSELY.
[2018-05-16 07:44] LABS: BASOPHILS % (AUTO) 0.6 % (0.0-2.0); EOSINOPHILS # (AUTO) 0.2 K/uL (0.0-0.7); EOSINOPHILS % (AUTO) 2.6 % (0.0-7.0); HEMATOCRIT 33.6 % (31.2-41.9); HEMOGLOBIN 10.9 g/dL (10.9-14.3); LYMPHOCYTES # (AUTO) 2.6 K/uL (20.0-40.0); LYMPHOCYTES % (AUTO) 31.4 % (20.5-51.5); MEAN CORPUSCULAR HEMOGLOBIN 26.1 uug (24.7-32.8); MEAN CORPUSCULAR HGB CONC 33 g/dL (32.3-35.6); MEAN CORPUSCULAR VOLUME 80.1 fL (75.5-95.3); MONOCYTES # (AUTO) 0.8 K/uL (2.0-10.0); MONOCYTES % (AUTO) 10.1 % (0.0-11.0); NEUTROPHILS # (AUTO) 4.5 K/uL (1.8-8.9); NEUTROPHILS % (AUTO) 55.3 % (38.5-71.5); PLATELET COUNT (AUTO) 441 K/uL (179-408); RED BLOOD CELL COUNT(AUTO) 4.19 MIL/uL (3.63-4.92); WHITE BLOOD COUNT (AUTO) 8.2 K/uL (3.8-11.8)
[2018-05-16 07:55] LABS: CARBON DIOXIDE 27 mmol/L (21-32); CHLORIDE 102 mmol/L (98-107); CREATININE 0.6 mg/dL (0.6-1.3); GLUCOSE 73 mg/dL (74-106); MAGNESIUM 1.7 mg/dL (1.8-2.4); POTASSIUM 3.2 mmol/L (3.5-5.1); UREA NITROGEN, BLOOD 10 mg/dL (7-18)
[2018-05-16] MEDS: REPAGLINIDE 1 MG TABLET PO SCH ×3 (08:00→12:10)
[2018-05-16] MEDS: CARVEDILOL 12.5 MG TABLET PO SCH ×2 (08:00→08:51)
[2018-05-16] MEDS: CHOLECALCIFEROL 1,000 UNIT TABLET PO SCH (08:49)
[2018-05-16] MEDS: CLOPIDOGREL 75 MG TABLET PO SCH (08:50)
[2018-05-16] MEDS: MULTIVIT, IRON, MIN NO. 8, FA TABLET PO SCH (08:50)
[2018-05-16] MEDS: ASCORBIC ACID 500 MG TABLET PO SCH ×2 (08:50→09:00)
[2018-05-16] MEDS: MEMANTINE HCL 10 MG TABLET PO SCH ×2 (08:50→09:00)
[2018-05-16] MEDS: OMEGA-3 FATTY ACIDS/FISH OIL CAPSULE PO SCH ×2 (08:50→09:00)
[2018-05-16] MEDS: HYDROCHLOROTHIAZIDE 12.5 MG CAPSULE PO SCH (08:50)
[2018-05-16] MEDS: LOSARTAN POTASSIUM 50 MG TABLET PO SCH ×2 (08:51→09:00)
[2018-05-16] MEDS: INSULIN GLARGINE,HUM 300 UNITS/3 ML CARTRIDGE SQ SCH (09:27)
[2018-05-16 11:36] VITALS: BP 169/70
[2018-05-16] MEDS ORDERED: POTASSIUM CHLORIDE 20 MEQ POWDER PACKET PO ONE (11:45)
[2018-05-16] MEDS ORDERED: MAGNESIUM OXIDE 400 MG TABLET PO ONE (11:45)
[2018-05-16 13:30] VITALS: BP 140/73
[2018-05-16] MEDS ORDERED: NEUTRA PHOS PACKET PO ONE (15:15)
--- NOTE | 2018-05-16 16:20 | NUR ---
PATIENT DISCHARGED IN STABLE CONDITION, TO [facility]. REP[ORT GIVEN TO LIS PABLO PRIOR TO TRANSFER. LEFT WITH IV ACCESS ON RIGHT WRIST ISTILL INTACT AND PATENT, PER LIS PABLO'S REQUEST FOR CONTINUATION OF IV ATBX. DISCHARGE PAPERS AND INSTRUCTIONS GIVENT TO PATIENT. WOUND TX DONE. LEFT HOSPITAL VIA AMBULANCE ACCOMPANIED BY 2 PROFESSOR OF RADIOLOGY.
== END 2018-05-16 16:12 | DRG 689 ==
LOC: ER 21:16 → MED 05-13 03:08
PROVIDERS: ADMIT Hospitalist
DX: N39.0 Urinary tract infection, site not specified (principal); G93.41 Metabolic encephalopathy; B96.89 Other specified bacterial agents as the cause of diseases classified elsewhere; Z16.12 Extended spectrum beta lactamase (ESBL) resistance; Z85.43 Personal history of malignant neoplasm of ovary; E11.65 Type 2 diabetes mellitus with hyperglycemia; Z79.4 Long term (current) use of insulin; F03.90 Unspecified dementia, unspecified severity, without behavioral disturbance, psychotic disturbance, mood disturbance, and anxiety; E78.5 Hyperlipidemia, unspecified; M81.0 Age-related osteoporosis without current pathological fracture; Z86.73 Personal history of transient ischemic attack (TIA), and cerebral infarction without residual deficits; K27.9 Peptic ulcer, site unspecified, unspecified as acute or chronic, without hemorrhage or perforation; R26.2 Difficulty in walking, not elsewhere classified; Z79.82 Long term (current) use of aspirin; Z79.899 Other long term (current) drug therapy; I25.10 Atherosclerotic heart disease of native coronary artery without angina pectoris; Z79.83 Long term (current) use of bisphosphonates; I10 Essential (primary) hypertension
CPT/HCPCS: 36415; 70030-TC; 71045; 83605; 83735; 84100; 84443; 85025; 85730; 87040; 92610; 93005; 97110; 97165; A4663; J1815; J2185; J2543; J3490; J7030; J8499